=== PATIENT | female | born 1940 ===

== ENCOUNTER → 2018-07-09 18:45 | Outpatient (REF) | payer MEDICARE, OTHER, SELFPAY ==
[2018-07-09 19:13] LABS: Add Manual Diff / Slide Review NO; Basophils Percent Auto 0.8 % (0-2); Eosinophils Percent Auto 0.7 % (2-4); Hematocrit 44.6 % (36-46); Hemoglobin 14.9 g/dL (12.0-16.0); Lymphocytes Percent Auto 29.3 % (25-40); Mean Corpuscular HGB Conc 33.3 % (30-36); Mean Corpuscular Hemoglobin 32.1 PG (26-34); Mean Corpuscular Volume 96.4 fL (80-100); Monocytes Percent Auto 7.7 % (3-14); Neutrophils Absolute Auto 3000 /uL (3000-5900); Neutrophils Percent Auto 61.5 % (50-75); Platelet Count 219 X10^3/uL (150-400); Red Blood Cell Count 4.63 X10^6/uL (4.0-5.2); Red Cell Distribution Width 13.4 % (11.6-14.8); White Blood Cell Count 4.9 X10^3/uL (4.5-11.0)
[2018-07-09 19:25] LABS: Alanine Aminotransferase 32 IU/L (9-52); Albumin 4.6 g/dL (3.5-5.0); Albumin Globulin Ratio 1.7 (1.0-2.8); Alkaline Phosphatase 52 U/L (38-126); Aspartate Aminotransferase 40 IU/L (14-36); BUN Creatinine Ratio 22.9 (6-22); Bilirubin Total 0.5 mg/dL (0.2-1.3); Blood Urea Nitrogen 16 mg/dL (7-17); Calcium 9.6 mg/dL (8.4-10.2); Carbon Dioxide 28 mmol/L (22-32); Chloride 102 mmol/L (98-107); Cholesterol 237 mg/dL (140-199); Estimated Glomerular Filt Rate > 60.0 mL/min (>60); Globulin 2.7 g/dL (1.7-4.1); Glucose 67 mg/dL (80-110); HDL Cholesterol 76 mg/dL (40-60); HEMOLYSIS 23 (0-50); LDL Cholesterol Calculated 141 mg/dL (<100); Potassium 4.7 mmol/L (3.4-5.1); Sodium 142 mmol/L (137-145); Total Protein 7.3 g/dL (6.3-8.2); Triglycerides 99 mg/dL (35-150); Uric Acid 3.2 mg/dL (2.5-6.2)
[2018-07-09 19:40] LABS: Free T3, Triiodothyronine Free 3.36 pg/mL (2.77-5.27); Free T4, Direct Thyroxine 1.04 ng/dL (0.78-2.19)
[2018-07-09 20:30] LABS: Thyroid Stimulating Hormone 3.57 uIU/mL (0.47-4.68)
[2018-07-11 15:07] LABS: Triiodothyronine T3 Total 83 ng/dL (76-181)
[2018-07-14 13:54] LABS: Anti Thyroglobulin Antibody < 1 IU/mL (< 2); Thyroid Peroxidase Antibodies < 1 IU/mL (< 9)
== END ==
LOC: LAB 18:45
PROVIDERS: Visit Provider Specialist
DX: E78.5 Hyperlipidemia, unspecified (principal); M81.0 Age-related osteoporosis without current pathological fracture; M15.9 Polyosteoarthritis, unspecified
CPT/HCPCS: 36415; 80053; 80061; 84439; 84443; 84480; 84481; 84550; 85025; 86376; 86800

== ENCOUNTER → 2018-08-20 19:20 | Outpatient (REF) | payer MEDICARE, OTHER, SELFPAY ==
[2018-08-20 19:44] LABS: Alanine Aminotransferase 33 IU/L (9-52); Albumin 4.4 g/dL (3.5-5.0); Albumin Globulin Ratio 1.7 (1.0-2.8); Alkaline Phosphatase 45 U/L (38-126); Aspartate Aminotransferase 39 IU/L (14-36); BUN Creatinine Ratio 23.8 (6-22); Bilirubin Total 0.5 mg/dL (0.2-1.3); Blood Urea Nitrogen 19 mg/dL (7-17); Calcium 9.9 mg/dL (8.4-10.2); Carbon Dioxide 29 mmol/L (22-32); Chloride 104 mmol/L (98-107); Estimated Glomerular Filt Rate > 60.0 mL/min (>60); Globulin 2.6 g/dL (1.7-4.1); Glucose 79 mg/dL (80-110); HEMOLYSIS < 15 (0-50); Potassium 4.4 mmol/L (3.4-5.1); Sodium 141 mmol/L (137-145)
== END ==
LOC: LAB 19:20
PROVIDERS: Visit Provider Specialist
DX: R73.09 Other abnormal glucose (principal)
CPT/HCPCS: 36415; 80053